=== PATIENT | female | born 1940 | race African-American/Black ===

== ENCOUNTER 2017-08-12 14:01 | Inpatient (IN) | payer MEDICARE, SELFPAY ==
[2017-08-12] VITALS (7 sets, daily range): BP systolic 112–146; BP diastolic 64–90; PULSE 114–130; RESP 16–22; TEMP 37.1–37.4; O2SAT 97–100; BMI 17.9
[2017-08-12 14:51] LABS: POC Glucose,Bedside 439 mg/dL
--- NOTE | 2017-08-12 15:01 | HMH.EDGENADL ---
ED Disposition Clinical Impression: Hyperglycemia, Hypernatremia Abdominal pain Qualifiers: Abdominal location: generalized Qualified Code(s): R10.84 - Generalized abdominal pain Disposition: Still a Patient Condition on Discharge: Fair Instructions: DI for Hyperglycemia -- Adult Referrals: Franki Gu MD [Primary Care Provider] - - Critical Care Critical Care Time: No Attestation: On 08/12/17, the high probability of a clinically significant, sudden or life threatening deterioration of the following system(s) required my full and direct attention, intervention and personal management. The time I documented below is in addition to time spent performing reported procedures but includes the following listed in this critical care notation. Medical Decision Making Vital Signs: 08/12/17 14:24 08/12/17 15:43 08/12/17 16:38 Pulse Rate [Left Brachial] 130 H 122 H 114 H Respiratory Rate 16 20 18 Blood Pressure [Left Arm] 135/89 146/90 146/90 Blood Pressure Mean [Left Arm] 104 108 108 Blood Pressure Source [Left Arm] Automatic Cuff Automatic Cuff Automatic Cuff Blood Pressure Position [Left Arm] Supine Sitting Sitting 02 Sat by Pulse Oximetry 97 99 98 Oxygen Delivery Method Nasal Cannula Non-Rebreather Simple Mask Oxygen Flow Rate (LPM) 4 15 4 - Lab Data Lab Results 08/12/17 14:44: POC Glucose 439 08/12/17 15:15: WBC 11.6 H, RBC 4.59, Hgb 12.3, Hct 40.8, MCV 88.9, MCH 26.8 L, MCHC 30.1 L, RDW 12.8, Plt Count 175, MPV 9.4, Neut % (Auto) 80.1 H, Lymph % (Auto) 15.3, Rush % (Auto) 2.3, Eos % (Auto) 1.9, Baso % (Auto) 0.2, Neut # (Auto) 9.3 H, Lymph # (Auto) 1.8, Rush # (Auto) 0.3, Eos # (Auto) 0.2, Baso # (Auto) 0.0 08/12/17 15:15: Sodium 153 H*, Potassium 3.8, Chloride 113 H, Carbon Dioxide 32, Anion Gap 11.8, BUN 46 H, Creatinine 1.04 H, Estimated Creat Clear 40, Estimated GFR 52 L, Est GFR ( Amer) 63, Glucose 417 H*, Calcium 9.0, Total Bilirubin 0.4, AST 20, ALT 22, Alkaline Phosphatase 51, Total Protein 7.9, Albumin 2.8 L, Globulin 5.1 H, Albumin/Globulin Ratio 0.5 L 08/12/17 15:15: Acetone Level None detected 08/12/17 15:15: Total Creatine Kinase 458 H, CK-MB (CK-2) 0.5, CK-MB (CK-2) Rel Index 0.1, Troponin I < 0.02, Amylase 491 H* 08/12/17 15:15: Lipase 68 L Result diagrams: 08/12/17 15:15 08/12/17 15:15 Orders (Tests/Meds): ED MEDICATIONS Generic Name Dose Route Start Last Admin Trade Name Freq PRN Reason Stop Dose Admin Sodium Chloride 1,000 mls @ 150 mls/hr 08/12/17 16:30 Sod Chloride 0.9% 1000ml Bag IV 09/11/17 16:29 .[id number] LAVELLE Discontinued Medications Generic Name Dose Route Start Last Admin Trade Name Freq PRN Reason Stop Dose Admin Insulin Human Regular 5 unit 08/12/17 16:30 08/12/17 16:39 Humulin R Insulin 100 Units/Ml 10ml Vial IVP 08/12/17 16:31 5 unit ONCE ONE Administration Sodium Chloride 1,000 ml 08/12/17 15:02 08/12/17 15:23 Sod Chloride 0.9% 1000ml Bag IV 08/12/17 15:03 1,000 ml BOLUS ONE Administration ORDERS Category Date Time Status POC Glucose,Bedside Stat Lab 08/12/17 14:50 Ordered Venous Blood Gas Stat RT 08/12/17 15:07 Ordered - CT Data CT Scan: Abdomen, Pelvis Time Received: 16:[address] Reviewed: Yes: I have viewed the radiologist's interpretation Findings Narrative: Atelectatic changes in the bases left greater than right. Rectal fecal impaction. No change from chronic pancreatitis or pancreatic ductal dilatation. Gastrostomy tube remains in place. Diverticulosis. - ECG Data Tracing #1 EKG interpreted by Felipe Young MD: Rhythm: sinus tachycardia Rate: 123 [place]: normal Ectopy: none Conduction: normal ST Segment Changes: none T Wave Changes: none Q Waves: none No evidence of acute ischemia or injury Baseline wander present, but I consider the EKG adequate for accurate interpretation. - Stalin Inquiry Pt receiving controlled substance: No Medical Decision Making Narrative:
--- NOTE | 2017-08-12 15:03 | XR_ITS ---
XR chest AP HISTORY: Elevated blood sugars ITS.REASON: elev BS ORDERING PHYSICIAN: Felipe Young MD PATIENT AGE: 77 years COMPARISON: 06/06/2017 FINDINGS: The cardiomediastinal silhouette and pulmonary vascularity are within normal limits. Prominent skin fold artifact is present centrally and on the left.. Patchy density is present in the left lower lobe consistent with an area of atelectasis or infiltrate. Degenerative changes of the shoulders. IMPRESSION: Left lower lobe atelectasis and/or infiltrate
--- NOTE | 2017-08-12 15:12 | CT_ITS ---
CT abdomen pelvis wo con CLINICAL INDICATION: Generalized abdominal pain ITS.REASON: abdo pain ORDERING PHYSICIAN: Felipe Young MD PATIENT AGE: 77 years COMPARISON: 11/20/2016 TECHNIQUE: Axial images obtained with sagittal and coronal reformats. PROCEDURE: Oral Contrast: None IV Contrast: None . FINDINGS: Lower thorax: There are atelectatic changes in the lung bases greater on the left. No focal liver lesion is evident. Spleen and adrenal glands are unremarkable. There is diffuse pancreatic ductal dilatation with dorsal calcifications noted in the pancreatic head and tail as before. No renal or ureteral calculi or hydronephrosis. Gastrostomy tube is present with the tip in the region of the antrum of the stomach. No intestinal obstruction or free air. There is rectal fecal action. The rectum measures up to 9 cm in transverse dimension with moderate amount feces in the rectosigmoid and ascending colon. Diverticulosis of the ascending colon. The appendix is not clearly delineated. No evidence of appendicitis or diverticulitis. Wedging T12 and L1. IMPRESSION: 1. Rectal fecal impaction. 2. No change chronic pancreatitis with pancreatic ductal dilatation. 3. Gastrostomy tube remains in place 4. Diverticulosis. No acute abdominal or pelvic findings.
[2017-08-12 15:27] LABS: Basophils % 0.2 % (0.1-2.0); Eosinophils # 0.2 K/mm3 (0.0-0.4); Eosinophils % 1.9 % (0.1-12.0); Hematocrit 40.8 % (37.0-47.0); Hemoglobin 12.3 g/dL (12.2-16.2); Lymphocytes # 1.8 K/mm3 (0.7-4.5); Lymphocytes % 15.3 K/mm3 (10-50); Mean Corpuscular HGB Conc 30.1 g/dL (31.8-35.4); Mean Corpuscular Hemoglobin 26.8 pg (27.0-31.2); Mean Corpuscular Volume 88.9 fl (81-99); Mean Platelet Volume 9.4 fl (7.4-10.4); Monocytes # 0.3 K/mm3 (0.1-1.0); Monocytes % 2.3 % (1.7-9.3); Neutrophils # 9.3 K/mm3 (1.8-7.8); Neutrophils % 80.1 % (37.0-80.0); Platelet Count 175 K/mm3 (142-424); Red Blood Count 4.59 M/mm3 (4.20-5.40); Red Cell Distribution Width 12.8 % (11.5-17.5); White Blood Count 11.6 K/mm3 (4.8-10.8)
[2017-08-12 15:43] LABS: Alanine Aminotransferase 22 U/L (12-78); Albumin Level 2.8 gm/dL (3.4-5.0); Albumin/Globulin Ratio 0.5 (1.1-1.8); Alkaline Phosphatase 51 U/L (46-116); Anion Gap 11.8 mEq/L (5-15); Aspartate Amino Transferase 20 U/L (15-37); Bilirubin,Total 0.4 mg/dL (0.2-1.0); Blood Urea Nitrogen 46 mg/dL (7-18); Carbon Dioxide 32 mmol/L (21.0-32.0); Chloride 113 mmol/L (98-107); Creatinine Clearance Estimated 40 mL/min (0-300); Creatinine,Serum 1.04 mg/dL (0.55-1.02); Estimated Glomerular Filt Rate 52 ml/min (>60); GFR (African American) 63 ML/MIN (>60); Globulin 5.1 gm/dl (1.3-3.2); Potassium 3.8 mmoL/L (3.5-5.1); Total Protein,Serum 7.9 gm/dL (6.4-8.2)
[2017-08-12 15:45] LABS: Glucose 417 mg/dL (74-106); Sodium 153 mmol/L (136-145)
--- NOTE | 2017-08-12 15:45 | PC.NURSE ---
LAB CALLED WITH CRITICAL LAB VALUE GLUCOSE 417 AND SODIUM 156 ADVISED.
[2017-08-12 15:46] LABS: Lipase 68 u/L (73-393)
[2017-08-12 15:50] LABS: Acetone, Serum (Rapid) None Detected (None Detect)
[2017-08-12 16:15] LABS: Amylase 491 U/L (25-125); CKMB Relative Index 0.1 U/L (0-4.0); Creatine Kinase 458 U/L (26-192); Creatine Kinase MB 0.5 mg/ml (0.0-3.6); Troponin I < 0.02 ng/ml (0.00-0.06)
--- NOTE | 2017-08-12 16:39 | PC.NURSE ---
BED ASSIGNMENT 203
[2017-08-12 17:53] LABS: POC Glucose,Bedside 213 mg/dL
--- NOTE | 2017-08-12 18:10 | HMH.HP ---
*Admission Date: 08/12/17 *Chief complaint: Mental status change/hyperglycemia *History of present illness: 77-year-old white female, resident of [facility], afflicted with remote stroke disease, has G-tube, chronically ill and with poor communication skills and high risk of aspiration who yesterday evening was noted to have fever, placed on IV fluids but this morning continues to be poorly responsive and was noted by nursing staff to have glucose levels above 400. She has no history of diabetes. Transferred emergency room given high risk of sepsis. Emergency room workup revealed significant hyponatremia, evidence of dehydration, hyperglycemia, leukocytosis, but no evidence of urinary tract infection. Chest x-ray showed evidence of atelectasis and lobar infiltrate, admitted to hospital for IV antibiotics and further diagnostic tests and fluid resuscitation. [facility] History Medical History: Reports:: Cerebrovascular Accident, Peripheral Vascular Disease, Renal Insufficiency, Urinary Tract Infection Denies:: Cancer, Diabetes Mellitus Type 1, Diabetes Mellitus Type 2, MRSA Other Medical History: Reports: Arthritis Amputation: No - *Social History Smoking Status: Never smoker Alcohol Intake: former - Psychiatric History Expresses thoughts of harming self/others: None Suicide Plan Description: No Plan Review of Systems - Review of Systems Review of systems:: unable to obtain Patient denies abdominal pain, but is poorly responsive and is difficult to localize symptoms. Meds Home Medications Medication Instructions Recorded Confirmed Type Acetaminophen [Acetaminophen Extra 500 mg G-TUBE Q6HP PRN 08/12/17 08/12/17 History Strength] Cholecalciferol (Vitamin D3) 1,000 unit G-TUBE DAILY 08/12/17 08/12/17 History [Children's Vitamin D3] Dorzolamide HCl/Timolol Maleat 10 ml OP BID 08/12/17 08/12/17 History [Cosopt Eye Drops] Lactulose [Lactulose 20gm/30ml 20 gm G-TUBE DAILYP PRN 08/12/17 08/12/17 History Oral Soln] Metoclopramide HCl [Metoclopramide 5 mg G-TUBE BID 08/12/17 08/12/17 History 5mg/5ml Oral Soln] Sennosides [Senna Lax] 8.6 mg G-TUBE DAILY 08/12/17 08/12/17 History Allergies Allergy/AdvReac Type Severity Reaction Status Date / Time ASHLEY INHIBITORS Allergy Unknown UNKNOWN Uncoded 07/07/17 14:04 Exam Vital signs and Labs for Last 24 Hours: Temp Pulse Resp BP Pulse Ox 99.4 F 118 H 22 124/74 98 08/12/17 17:44 08/12/17 17:44 08/12/17 17:44 08/12/17 17:44 08/12/17 16:38 Laboratory Results - last 24 hr 08/12/17 17:35: POC Glucose 213 I & O for Last 24 hours: Intake & Output 08/10/17 08/11/17 08/12/17 08/13/17 11:59 11:59 11:59 11:59 Intake Total 1000 / 1000 Balance 1000 / 1000 Narrative: Chronically ill-appearing -Senegalese female who appears older than her stated age. Gastrostomy tube noted. Deviating head to the left. Appropriate heel pads in place. Dry oral mucosa, no lesions. Lungs have rhonchi throughout, heart rate tachycardic, abdomen soft, gastrostomy tube in good position. Contracted extremities with no evidence of bedsores. Assessment and Plan (1) Lobar pneumonia Current visit: Yes Status: Acute Category: Medical Code(s): J18.1 - Lobar pneumonia, unspecified organism (2) Abdominal pain Current visit: Yes Status: Acute Qualifiers: Abdominal location: generalized Qualified Code(s): R10.84 - Generalized abdominal pain Category: Medical Code(s): R10.9 - Unspecified abdominal pain (3) Hyperglycemia Current visit: Yes Status: Acute Category: Medical Code(s): R73.9 - Hyperglycemia, unspecified (4) Hypernatremia Current visit: Yes Status: Acute Category: Medical Code(s): E87.0 - Hyperosmolality and hypernatremia - Assessment and plan all Dx Assessment and Plan for all problems:: Plan will be to admit to hospital. IV hydration. Watch electrolytes closely. Given her
--- NOTE | 2017-08-12 18:14 | P.HP_ITS ---
*Admission Date: 08/12/17 *Chief complaint: Mental status change/hyperglycemia *History of present illness: 77-year-old white female, resident of [facility], afflicted with remote stroke disease, has G-tube, chronically ill and with poor communication skills and high risk of aspiration who yesterday evening was noted to have fever , placed on IV fluids but this morning continues to be poorly responsive and was noted by nursing staff to have glucose levels above 400. She has no history of diabetes. Transferred emergency room given high risk of sepsis. Emergency room workup revealed significant hyponatremia, evidence of dehydration , hyperglycemia, leukocytosis, but no evidence of urinary tract infection. Chest x-ray showed evidence of atelectasis and lobar infiltrate, admitted to hospital for IV antibiotics and further diagnostic tests and fluid resuscitation. [facility] History Medical History: Reports:: Cerebrovascular Accident, Peripheral Vascular Disease , Renal Insufficiency, Urinary Tract Infection Denies:: Cancer, Diabetes Mellitus Type 1, Diabetes Mellitus Type 2, MRSA Other Medical History: Reports: Arthritis Amputation: No - *Social History Smoking Status: Never smoker Alcohol Intake: former - Psychiatric History Expresses thoughts of harming self/others: None Suicide Plan Description: No Plan Review of Systems - Review of Systems Review of systems:: unable to obtain Patient denies abdominal pain, but is poorly responsive and is difficult to localize symptoms. Meds Home Medications Medication Instructions Recorded Confirmed Type Acetaminophen [Acetaminophen Extra 500 mg G-TUBE Q6HP PRN 08/12/17 08/12/17 History Strength] Cholecalciferol (Vitamin D3) 1,000 unit G-TUBE DAILY 08/12/17 08/12/17 History [Children's Vitamin D3] Dorzolamide HCl/Timolol Maleat 10 ml OP BID 08/12/17 08/12/17 History [Cosopt Eye Drops] Lactulose [Lactulose 20gm/30ml 20 gm G-TUBE DAILYP PRN 08/12/17 08/12/17 History Oral Soln] Metoclopramide HCl [Metoclopramide 5 mg G-TUBE BID 08/12/17 08/12/17 History 5mg/5ml Oral Soln] Sennosides [Senna Lax] 8.6 mg G-TUBE DAILY 08/12/17 08/12/17 History Allergies Allergy/AdvReac Type Severity Reaction Status Date / Time ASHLEY INHIBITORS Allergy Unknown UNKNOWN Uncoded 07/07/17 14:04 Exam Vital signs and Labs for Last 24 Hours: Temp Pulse Resp BP Pulse Ox 99.4 F 118 H 22 124/74 98 08/12/17 17:44 08/12/17 17:44 08/12/17 17:44 08/12/17 17:44 08/12/17 16:38 Laboratory Results - last 24 hr 08/12/17 17:35: POC Glucose 213 I & O for Last 24 hours: Intake & Output 08/10/17 08/11/17 08/12/17 08/13/17 11:59 11:59 11:59 11:59 Intake Total 1000 / 1000 Balance 1000 / 1000 Narrative: Chronically ill-appearing -Kazakh female who appears older than her stated age. Gastrostomy tube noted. Deviating head to the left. Appropriate heel pads in place. Dry oral mucosa, no lesions. Lungs have rhonchi throughout, heart rate tachycardic, abdomen soft, gastrostomy tube in good position. Contracted extremities with no evidence of bedsores. Assessment and Plan (1) Lobar pneumonia Current visit: Yes Status: Acute Category: Medical Code(s): J18.1 - Lobar pneumonia, unspecified organism (2) Abdominal pain Current visit: Yes Status: Acute
--- NOTE | 2017-08-12 19:33 | PC.NURSE ---
Bedside report given to Donte Pacheco RN
[2017-08-13] VITALS (7 sets, daily range): BP systolic 130–143; BP diastolic 64–95; PULSE 55–130; RESP 18–22; TEMP 36.7–37.9; O2SAT 75–100; BMI 18.0
[2017-08-13 01:21] LABS: POC Glucose,Bedside 185 mg/dL
--- NOTE | 2017-08-13 06:51 | PC.NURSE ---
PT IS UNABLE TO COMMUNICATE WITH STAFF EFFECTIVELY. AT BEGINNING OF SHIFT PT MADE ATTEMPTS TO COMMUNICATE VERBALLY BUT SPEECH WAS INCOMPREHENSIBLE, WAS TOLD IN REPORT FROM DAY SHIFT THAT THIS IS BASELINE FOR PT. PT DID ATTEMPT TO SQUEEZE STAFF'S HANDS ON REQUEST BUT WAS UNABLE TO TAKE DEEP BREATHS PER REQUEST DURING RN'S ASSESSMENTS. TOTAL CARE PROVIDED FOR PT, TURN ADN REPOSITIONING Q2H, AND ORAL CARE Q2H PROVIDED. EXTREMITIES CONTRACTED. GTUBE NOTED ON ABDOMEN WITH DRESSING HAVING BROWN DRAINAGE, DRESSING WAS CHANGED WITH A 4X4 GAUZE. TOLERATED 3-4LNC WELL. VSS. WILL CONTINUE TO MONITOR.
--- NOTE | 2017-08-13 06:58 | PC.NURSE ---
NO STOOL NOTED THIS SHIFT.
[2017-08-13 06:59] LABS: Anion Gap 11.8 mEq/L (5-15); Blood Urea Nitrogen 23 mg/dL (7-18); Carbon Dioxide 29 mmol/L (21.0-32.0); Chloride 118 mmol/L (98-107); Creatinine Clearance Estimated 38 mL/min (0-300); Creatinine,Serum 0.54 mg/dL (0.55-1.02); Estimated Glomerular Filt Rate 110 ml/min (>60); GFR (African American) 133 ML/MIN (>60); Potassium 3.8 mmoL/L (3.5-5.1)
[2017-08-13 07:09] LABS: Sodium 155 mmol/L (136-145)
[2017-08-13 07:14] LABS: Glucose 193 mg/dL (74-106)
--- NOTE | 2017-08-13 07:17 | HMH.PHAVTE ---
[facility] Pharmacy VTE Monitoring - Patient Demographics Admission date: 08/13/17 Report Date: 08/13/17 Time: 07:17 Allergies/Adverse Reactions: Patient Allergies ASHLEY INHIBITORS Allergy (Unknown, Uncoded 07/07/17 14:04) UNKNOWN Height: 1.65 m Weight: 49.016 kg Patient Problems: Current Active Problems Hyperglycemia (Acute) Hypernatremia (Acute) Abdominal pain (Acute) Lobar pneumonia (Acute) - VTE Risk Labs: VTE Related Lab Results Hgb 12.3 g/dL (12.2-16.2) 08/12/17 15:15 Hct 40.8 % (37.0-47.0) 08/12/17 15:15 Plt Count 175 K/mm3 (142-424) 08/12/17 15:15 BUN 23 mg/dL (7-18) H D 08/13/17 06:20 Creatinine 0.54 mg/dL (0.55-1.02) L D 08/13/17 06:20 Estimated Creat Clear 38 mL/min (0-300) 08/13/17 06:20 Was VTE Risk Assessment Performed: Yes VTE Score: 4 VTE Risk Level: Low Risk - Prophylaxis VTE Prophylaxis Ordered?: Yes Types of VTE Prophylaxis: TEDS Knee High Location of Applied Device: Bilateral Lower Extremeties - VTE Diagnosis Confirmed Treatment or plan recommended: Continue Current Treatment
--- NOTE | 2017-08-13 07:35 | PC.NURSE ---
REPORT GIVEN TO Abe VELASQUEZ W/C
[2017-08-13 07:47] LABS: POC Glucose,Bedside 180 mg/dL
--- NOTE | 2017-08-13 08:31 | HMH.ACPN2 ---
Internal Medicine - PN: Subj *Date: 08/13/17 *Time: 08:31 Interval history: Patient is resting in bed, awakens easily. Denies any pain or shortness of breath. Alert and oriented at baseline. Rate and rhythm regular. Lung sounds clear and equal bilaterally. Abdomen soft and non-tender. Gtube present. LE's contracted, no edema. Exam Vital signs and Labs for Last 24 Hours: Temp Pulse Resp BP Pulse Ox 98.8 F 55 L 20 130/64 99 08/13/17 04:00 08/13/17 04:00 08/13/17 04:00 08/13/17 04:00 08/13/17 04:00 Laboratory Results - last 24 hr 08/13/17 06:34: POC Glucose 180 I & O for Last 24 hours: Intake & Output 08/10/17 08/11/17 08/12/17 08/13/17 11:59 11:59 11:59 11:59 Output Total 0 / 0 Balance 0 / 1000 Weight 108 lb 1 oz Assessment and Plan (1) Lobar pneumonia Current visit: Yes Status: Acute Category: Medical Code(s): J18.1 - Lobar pneumonia, unspecified organism (2) Abdominal pain Current visit: Yes Status: Acute Qualifiers: Abdominal location: generalized Qualified Code(s): R10.84 - Generalized abdominal pain Category: Medical Code(s): R10.9 - Unspecified abdominal pain (3) Hyperglycemia Current visit: Yes Status: Acute Category: Medical Code(s): R73.9 - Hyperglycemia, unspecified (4) Hypernatremia Current visit: Yes Status: Acute Category: Medical Code(s): E87.0 - Hyperosmolality and hypernatremia - Assessment and plan all Dx Assessment and Plan for all problems:: Hypernatremia is stable. Continue Normal Saline infusions for dehydration. Hyperglycemia is improving. Nutrition consult for G tube feeding. Continue IV antibiotics.
[2017-08-13 12:01] LABS: POC Glucose,Bedside 212 mg/dL
--- NOTE | 2017-08-13 12:17 | PC.NURSE ---
SPOKE WITH PONCHO THE DIETITIAN WHO STATED FOR WHILE PATIENT HERE TO GIVE 2 KATRIN HN WITH A GOAL RATE OF 25ML/HR AND TO RUN IT CONTINUOS, STATED TO ALSO FLUSH 120ML 4 TIMES A DAY, AND THAT INCLUDES WITH MEDS
[2017-08-13 17:22] LABS: POC Glucose,Bedside 101 mg/dL
--- NOTE | 2017-08-13 19:35 | PC.NURSE ---
PATIENT HAS SLEPT MOST OF SHIFT, SHE HAS BEEN TURNED [id number]. PEG TUBE NOTICED TO HAVE GREEN DRAINAGE AND APPEARED ERODED AROUND IT, MD MADE AWARE. INSTRUCTED TO CULTURE IT AND ORDER MUPORICIN CREAM TID. STATED SOMEONE WOULD LOOK AT IT EITHER TODAY OR IN MORNING. SMALL TEMP NOTED AT END OF SHIFT, BLANKETS REMOVED AND LEFT WITH SHEET AT THIS TIME. FEEDING GOING AT 10ML HR AT THIS TIME. GOAL RATE IS 25ML/HR. WILL CONTINUE TO MONITOR REPORT GIVEN TO YARED CULLEN
[2017-08-14 00:43] LABS: POC Glucose,Bedside 131 mg/dL
[2017-08-14 04:00] VITALS: BP 153/78; PULSE 105; RESP 20; TEMP 36.9; O2SAT 100
--- NOTE | 2017-08-14 04:24 | PC.NURSE ---
PT RESTING AT THIS TIME. PT REMAINS ON 3L O2 NC. PT O2 SATS DROP TO 70 S ON ROOM AIR. PT HAS GTUBE WITH ERYTHEMA AND DRAINAGE NOTED TO STOMA. BLACK AND GREEN DRAINAGE NOTED. 2 KATRIN HN FEEDING INFUSING @ 15 ML/ HR. WAS INCREASED FROM 10 ML WITH A GOAL OF TO REACH 25 ML/HR. MEDICATION ADMINISTERED PER MAR. NO OTHER CONCERNS AT THIS TIME. WILL CONTINUE TO MONITOR.
[2017-08-14 06:46] LABS: POC Glucose,Bedside 138 mg/dL
[2017-08-14 07:23] VITALS: BP 137/70; PULSE 100; RESP 20; TEMP 36.8; O2SAT 98
--- NOTE | 2017-08-14 07:24 | PC.NURSE ---
REPORT GIVEN TO Micah BOUCHER W/C
--- NOTE | 2017-08-14 07:49 | PC.NURSE ---
REPORT HANDOFF TO Jonatan JOLLY
--- NOTE | 2017-08-14 08:27 | HMH.DCSUM ---
General - General Admission date: 08/13/17 Discharge date: 08/14/17 HPI HPI: 77-year-old white female, resident of [facility], afflicted with remote stroke disease, has G-tube, chronically ill and with poor communication skills and high risk of aspiration who yesterday evening was noted to have fever, placed on IV fluids but this morning continues to be poorly responsive and was noted by nursing staff to have glucose levels above 400. She has no history of diabetes. Transferred emergency room given high risk of sepsis. Emergency room workup revealed significant hyponatremia, evidence of dehydration, hyperglycemia, leukocytosis, but no evidence of urinary tract infection. Chest x-ray showed evidence of atelectasis and lobar infiltrate, admitted to hospital for IV antibiotics and further diagnostic tests and fluid resuscitation. Objective Vital signs: Temp Pulse Resp BP Pulse Ox 98.2 F 100 H 20 137/70 98 08/14/17 07:23 08/14/17 07:23 08/14/17 07:23 08/14/17 07:23 08/14/17 07:23 Narrative: Patient is much more alert than admission. Continues to have garbled speech. Continues to have disorientation and Wilma's of chronic encephalopathy. Lung camacho are clear, G-tube site looks good with only minimal green drainage. Heart rate regular, abdomen is soft and G-tube feedings are infusing well Previously noted neurologic deficits are unchanged. Hospital Course Hospital Course: Patient was admitted, found to have hyperglycemia and hypernatremia. This was treated with normal saline infusion and insulin infusion. Sodium level stabilized. Patient was restarted with tube feeds. Patient was treated with sliding scale insulin did well. Patient was found to have no evidence of UTI. Blood cultures were drawn and are negative at the time of this dictation. Chest x-ray did show evidence of lobar atelectasis. Patient did well this morning and is back to baseline. She will be [facility] with G-[facility] antibiotics including levofloxacin and clindamycin as noted. We will place her on sliding scale insulin. She should have an extra 250 mL's of free water daily, and she will need BMP and CBC testing on August 17 She will also be on low intensity sliding scale. 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 I believe that the appropriate care for this patient is palliative and that she should be made a DNR status. She is unable to determine care for herself and is currently under state guardianship. We will begin the necessary process and I will ask Dr. Heard for a second opinion on this issue before she is discharged. Results Labs on day of discharge: Labs from last 24 hours 08/14/17 08/13/17 08/13/17 06:17 21:02 17:09 POC Glucose 138 131 101 08/13/17 11:49 POC Glucose 212 DS: Diagnosis - Discharge Diagnosis (1) Lobar pneumonia Status: Acute (2) Abdominal pain Status: Resolved (3) Hyperglycemia Status: Chronic (4) Hypernatremia Status: Chronic Meds Home Medications Medication Instructions Recorded Confirmed Type Acetaminophen [Acetaminophen Extra 1,000 mg G-TUBE Q6HP PRN 08/12/17 08/13/17 History Strength] Cholecalciferol (Vitamin D3) 1,000 unit G-TUBE DAILY 08/12/17 08/12/17 History [Children's Vitamin D3] Dorzolamide HCl/Timolol Maleat 1 drop OP BID 08/12/17 08/13/17 History [Cosopt Eye Drops] Lactulose [Lactulose 20gm/30ml 20 gm G-TUBE DAILYP PRN 08/12/17 08/12/17 History Oral Soln] Metoclopramide HCl [Metoclopramide 5 mg G-TUBE BID 08/12/17 08/12/17 History 5mg/5ml Oral Soln] Sennosides [Senna Lax] 8.6 mg G-TUBE DAILY 08/12/17 08/12/17 History Allergies Allergy/AdvReac Type Severity Reaction Status Date / Time ASHLEY INHIBITORS Allergy Unknown UNKNOWN Uncoded 07/07/17 14:04
--- NOTE | 2017-08-14 08:31 | P.DS_ITS ---
General - General Admission date: 08/13/17 Discharge date: 08/14/17 HPI HPI: 77-year-old white female, resident of [facility], afflicted with remote stroke disease, has G-tube, chronically ill and with poor communication skills and high risk of aspiration who yesterday evening was noted to have fever , placed on IV fluids but this morning continues to be poorly responsive and was noted by nursing staff to have glucose levels above 400. She has no history of diabetes. Transferred emergency room given high risk of sepsis. Emergency room workup revealed significant hyponatremia, evidence of dehydration , hyperglycemia, leukocytosis, but no evidence of urinary tract infection. Chest x-ray showed evidence of atelectasis and lobar infiltrate, admitted to hospital for IV antibiotics and further diagnostic tests and fluid resuscitation. Objective Vital signs: Temp Pulse Resp BP Pulse Ox 98.2 F 100 H 20 137/70 98 08/14/17 07:23 08/14/17 07:23 08/14/17 07:23 08/14/17 07:23 08/14/17 07:23 Narrative: Patient is much more alert than admission. Continues to have garbled speech. Continues to have disorientation and Wilma's of chronic encephalopathy. Lung camacho are clear, G-tube site looks good with only minimal green drainage. Heart rate regular, abdomen is soft and G-tube feedings are infusing well Previously noted neurologic deficits are unchanged. Hospital Course Hospital Course: Patient was admitted, found to have hyperglycemia and hypernatremia. This was treated with normal saline infusion and insulin infusion. Sodium level stabilized. Patient was restarted with tube feeds. Patient was treated with sliding scale insulin did well. Patient was found to have no evidence of UTI. Blood cultures were drawn and are negative at the time of this dictation. Chest x-ray did show evidence of lobar atelectasis. Patient did well this morning and is back to baseline. [facility] with [facility] including levofloxacin and clindamycin as noted. We will place her on sliding scale insulin. She should have an extra 250 mL's of free water daily, and she will need BMP and CBC testing on August 17 She will also be on low intensity sliding scale. 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 I believe that the appropriate care for this patient is palliative and that she should be made a DNR status. She is unable to determine care for herself and is currently under state guardianship. We will begin the necessary process and I will ask Dr. Heard for a second opinion on this issue before she is discharged. Results Labs on day of discharge: Labs from last 24 hours 08/14/17 08/13/17 08/13/17 06:17 21:02 17:09 POC Glucose 138 131 101 08/13/17 11:49 POC Glucose 212 DS: Diagnosis - Discharge Diagnosis (1) Lobar pneumonia Status: Acute (2) Abdominal pain Status: Resolved (3) Hyperglycemia Status: Chronic (4) Hypernatremia Status: Chronic Meds Home Medications Medication Instructions Recorded Confirmed Type Acetaminophen [Acetaminophen Extra 1,000 mg G-TUBE Q6HP PRN 08/12/17 08/13/17 History Strength]
--- NOTE | 2017-08-14 08:52 | HMH.ACPN2 ---
Internal Medicine - PN: Subj *Date: 08/14/17 *Time: 08:57 Interval history: Asked by Dr. Gu to see patient about a change in code status. Case discussed with Dr. Gu, chart reviewed. Patient has problems with chronic aspiration and chronic encephalopathy. She is a ashraf of the [facility] and a resident of [facility]. Exam Vital signs and Labs for Last 24 Hours: Temp Pulse Resp BP Pulse Ox 98.2 F 100 H 20 137/70 98 08/14/17 07:23 08/14/17 07:23 08/14/17 07:23 08/14/17 07:23 08/14/17 07:23 Laboratory Results - last 24 hr 08/13/17 11:49: POC Glucose 212 08/13/17 17:09: POC Glucose 101 08/13/17 21:02: POC Glucose 131 08/14/17 06:17: POC Glucose 138 Vital Signs Temp Pulse Resp BP Pulse Ox 08/14/17 07:23 98.2 F 100 H 20 137/70 98 08/14/17 04:00 98.4 F 105 H 20 153/78 100 08/13/17 23:55 75 L 08/13/17 20:55 115 H 22 100 08/13/17 20:13 98.2 F 115 H 22 142/95 100 08/13/17 16:26 100.2 F H 112 H 18 143/85 98 Intake and Output 08/13/17 08/14/17 08/14/17 19:59 03:59 11:59 Intake Total 1785 / 1785 1813 / 1813 Output Total 0 / 0 Balance 178 / 1785 1813 / 1813 Intake: Intake, Oral Amount 0 / 0 Intake, Tube Feeding Amount 256 / 256 Intake, Total IV Amount 178 / 178 1557 / 1557 0.9 % Sodium Chloride 1,000 ml 1357 / 1357 @ 150 mls/hr IV .Q6H40M [facility] Rx# :[id number] Clindamycin Phosphate 900 mg In 100 / 100 0.9 % Sodium Chloride 100 ml @ 100 mls/hr IV Q8H [facility] Rx#: [id number] Clindamycin Phosphate 900 mg In 1785 / 1785 0.9 % Sodium Chloride 100 ml @ 100 mls/hr IV Q8H [facility] Rx#: [id number] Levofloxacin/D5w 500 mg In 100 100 / 100 ml @ 100 mls/hr IV Q24H [facility] Rx# :[id number] Output: Output, Stool Amount 0 / 0 Other: Intake, Other Source Saline Solution Number of Voids 1 1 Number of Unmeasured Voids 4 1 Number of Urine Attends/Diapers 4 1 1 Weight 108 lb 0.988 oz 110 lb 5 oz Patient Weight 08/14/17 11:59 Weight 110 lb 5 oz I & O for Last 24 hours: Intake & Output 08/11/17 08/12/17 08/13/17 08/14/17 11:59 11:59 11:59 11:59 Intake Total 0 / 1000 3598 / 3598 Output Total 0 / 0 0 / 0 Balance 0 / 1000 3598 / 3598 Weight 108 lb 1 oz 110 lb 5 oz Microbiology Reports for the Last 24 Hours: Microbiology 08/13/17 13:30 Abdomen Gram Stain - Final - Constitutional no acute distress - *Routine Respiratory Exam Present: CTA bilaterally - *Routine Cardiovascular Exam Present: RRR - *Routine Neurological Exam Present: alert (speech garbled, contractures present) Assessment and Plan (1) Lobar pneumonia Current visit: Yes Status: Acute Category: Medical Code(s): J18.1 - Lobar pneumonia, unspecified organism (2) Abdominal pain Current visit: Yes Status: Resolved Qualifiers: Abdominal location: generalized Qualified Code(s): R10.84 - Generalized abdominal pain Category: Medical Code(s): R10.9 - Unspecified abdominal pain (3) Hyperglycemia Current visit: Yes Status: Chronic Category: Medical Code(s): R73.9 - Hyperglycemia, unspecified (4) Hypernatremia Current visit: Yes Status: Chronic Category: Medical Code(s): E87.0 - Hyperosmolality and hypernatremia (5) Encephalopathy chronic Current visit: Yes Status: Acute Category: Medical Code(s): G93.49 - Other encephalopathy - Assessment and plan all Dx Assessment and Plan for all problems:: Concur with changing code status to DNR.
--- NOTE | 2017-08-14 08:55 | P.PN_ITS ---
Internal Medicine - PN: Subj *Date: 08/14/17 *Time: 08:57 Interval history: Asked by Dr. Gu to see patient about a change in code status. Case discussed with Dr. Gu, chart reviewed. Patient has problems with chronic aspiration and chronic encephalopathy. She is a ashraf of the [facility] and a resident of [facility]. Exam Vital signs and Labs for Last 24 Hours: Temp Pulse Resp BP Pulse Ox 98.2 F 100 H 20 137/70 98 08/14/17 07:23 08/14/17 07:23 08/14/17 07:23 08/14/17 07:23 08/14/17 07:23 Laboratory Results - last 24 hr 08/13/17 11:49: POC Glucose 212 08/13/17 17:09: POC Glucose 101 08/13/17 21:02: POC Glucose 131 08/14/17 06:17: POC Glucose 138 Vital Signs Temp Pulse Resp BP Pulse Ox 08/14/17 07:23 98.2 F 100 H 20 137/70 98 08/14/17 04:00 98.4 F 105 H 20 153/78 100 08/13/17 23:55 75 L 08/13/17 20:55 115 H 22 100 08/13/17 20:13 98.2 F 115 H 22 142/95 100 08/13/17 16:26 100.2 F H 112 H 18 143/85 98 Intake and Output 08/13/17 08/14/17 08/14/17 19:59 03:59 11:59 Intake Total 1785 / 1785 1813 / 1813 Output Total 0 / 0 Balance 178 / 1785 1813 / 1813 Intake: Intake, Oral Amount 0 / 0 Intake, Tube Feeding Amount 256 / 256 Intake, Total IV Amount 178 / 178 1557 / 1557 0.9 % Sodium Chloride 1,000 ml 1357 / 1357 @ 150 mls/hr IV .Q6H40M [facility] Rx# :[id number] Clindamycin Phosphate 900 mg In 100 / 100 0.9 % Sodium Chloride 100 ml @ 100 mls/hr IV Q8H [facility] Rx#: [id number] Clindamycin Phosphate 900 mg In 1785 / 1785 0.9 % Sodium Chloride 100 ml @ 100 mls/hr IV Q8H [facility] Rx#: [id number] Levofloxacin/D5w 500 mg In 100 100 / 100 ml @ 100 mls/hr IV Q24H [facility] Rx# :[id number] Output: Output, Stool Amount 0 / 0 Other: Intake, Other Source Saline Solution Number of Voids 1 1 Number of Unmeasured Voids 4 1 Number of Urine Attends/Diapers 4 1 1 Weight 108 lb 0.988 oz 110 lb 5 oz Patient Weight 08/14/17 11:59 Weight 110 lb 5 oz I & O for Last 24 hours: Intake & Output 08/11/17 08/12/17 08/13/17 08/14/17 11:59 11:59 11:59 11:59 Intake Total 0 / 1000 3598 / 3598 Output Total 0 / 0 0 / 0 Balance 0 / 1000 3598 / 3598 Weight 108 lb 1 oz 110 lb 5 oz Microbiology Reports for the Last 24 Hours: Microbiology 08/13/17 13:30 Abdomen Gram Stain - Final - Constitutional no acute distress - *Routine Respiratory Exam Present: CTA bilaterally - *Routine Cardiovascular Exam Present: RRR - *Routine Neurological Exam Present: alert (speech garbled, contractures present) Assessment and Plan (1) Lobar pneumonia Current visit: Yes Status: Acute Category: Medical Code(s): J18.1 - Lobar pneumonia, unspecified organism (2) Abdominal pain Current visit: Yes Status: Resolved Qualifiers: Abdominal location: generalized Qualified Code(s): R10.84 - Generalized abdominal pain Category: Medical Code(s): R10.9 - Unspecified abdominal pain
[2017-08-14 09:13] LABS: Anion Gap 12.2 mEq/L (5-15); Blood Urea Nitrogen 12 mg/dL (7-18); Carbon Dioxide 29 mmol/L (21.0-32.0); Chloride 111 mmol/L (98-107); Creatinine Clearance Estimated 38 mL/min (0-300); Estimated Glomerular Filt Rate 120 ml/min (>60); GFR (African American) 146 ML/MIN (>60); Glucose 194 mg/dL (74-106); Potassium 3.2 mmoL/L (3.5-5.1); Sodium 149 mmol/L (136-145)
--- NOTE | 2017-08-14 10:26 | PC.NURSE ---
Report called to Patsy ingram [place]. Calling Ambulance for transfer
[2017-08-14 10:44] VITALS: O2SAT 91
[2017-09-23 09:53] LABS: POC Glucose,Bedside 103 mg/dL (70-110)
== END 2017-08-14 11:03 | DRG 193 ==
LOC: ER 17:07 → 2ND 17:26
PROVIDERS: Admitting Provider Internal Medicine Adolescent Medicine; Emergency Provider Emergency Medicine; Family Provider Internal Medicine Adolescent Medicine; PCP Internal Medicine Adolescent Medicine; Visit Provider Internal Medicine Adolescent Medicine
DX: J18.1 Lobar pneumonia, unspecified organism (principal); G93.49 Other encephalopathy; E87.0 Hyperosmolality and hypernatremia; Z93.1 Gastrostomy status; R73.9 Hyperglycemia, unspecified; Z86.73 Personal history of transient ischemic attack (TIA), and cerebral infarction without residual deficits
CPT/HCPCS: 36415; 71045; 74176; 80048; 80053; 82009; 82150; 82550; 82553; 82962; 83690; 84484; 85025; 87040; 87070; 87077; 87186; 87205; 93005; 94761; 96366; 96375; 99284; G0378; J1956